=== PATIENT | male | born 1995 ===

== ENCOUNTER 2018-01-13 07:50 | Emergency (ER) | payer OTHER ==
[2018-01-13 08:04] VITALS: BP 117/66; PULSE 62; RESP 18; TEMP 98.2; O2SAT 98
[2018-01-13] MEDS ORDERED: Amoxicillin-Clav 875-125 mg Tab PO STA (08:49)
--- NOTE | 2018-01-13 08:51 | C.PDOC ---
History Of Present Illness 22 y/o male w/o significnat PMHx presents to ED for evaluation of gradually onset of nasal congestion, runny nose, sore throat, swallowing discomfort since earlier today. Otherwise, Patient denies fever, chills, headache, dizziness, vertigo, drooling, dyspnea, chest pain, sob, wheezing, abd. pain, V/D, back pain , or any other complaints at this time. Time Seen by Provider: 01/13/18 08:26 Chief Complaint (Nursing): ENT Problem History Per: Patient History/Exam Limitations: None Onset/Duration Of Symptoms: Hrs Current Symptoms Are (Timing): Still Present Past Medical History Reviewed: Historical Data, Nursing Documentation, Vital Signs Vital Signs: Last Vital Signs Temp 98.2 F 01/13/18 08:03 Pulse 62 01/13/18 08:03 Resp 18 01/13/18 08:03 BP 117/66 01/13/18 08:03 Pulse Ox 98 01/13/18 08:58 - Medical History PMH: No Chronic Diseases Surgical History: No Surg Hx Family History: States: No Known Family Hx - Social History Hx Alcohol Use: No Hx Substance Use: No - Immunization History Hx Tetanus Toxoid Vaccination: No Hx Influenza Vaccination: Yes Hx Pneumococcal Vaccination: No Review Of Systems Constitutional: Negative for: Fever, Chills ENT: Positive for: Nose Congestion, Throat Pain, Throat Swelling. Negative for : Ear Pain Cardiovascular: Negative for: Chest Pain Respiratory: Negative for: Shortness of Breath Skin: Negative for: Rash Physical Exam - Physical Exam Appears: Non-toxic, No Acute Distress Skin: Warm, Dry, No Rash Head: Normacephalic Eye(s): bilateral: PERRL Ear(s): Bilateral: Normal Nose: No Flaring, Discharge (B/L nasal congestion with scant clear rhinorrhea) Oral Mucosa: Moist, No Drooling Tongue: Normal Appearing Lips: Normal Appearing Throat: Erythema, Exudate (scattered), No Drooling, Other (Edema bilaterally) Neck: Trachea Midline, Supple, Other ((-) meningeal sign) Cardiovascular: Rhythm Regular, No Murmur, No JVD Respiratory: No Decreased Breath Sounds, No Accessory Muscle Use, No Rales, No Rhonchi, No Wheezing Gastrointestinal/Abdominal: Soft, No Tenderness, No Distention, No Guarding, No Rebound Back: No CVA Tenderness Extremity: Normal ROM, No Pedal Edema, No Deformity Neurological/Psych: Oriented x3, Normal Speech, Normal Cognition ED Course And Treatment O2 Sat by Pulse Oximetry: 98 (RA) Pulse Ox Interpretation: Normal Progress Note: On re-evaluation, pt is afebrile, hemodynamiclay stable. Non- toxic, tolerate Po well in ED. PulsEOx 98% RA Neck; Supple, (-) meningeal sign. ENT: (+) acute pharyngitis. Lungs: CTA B/L, BS equal B/L. Abd: benign, (-) guarding, (-) rebound. neurologicaly intact. Pt advised. ref. to F/u with PMD in 2-3 days for re-eavl. return to Ed if any worsening or new changes. Disposition Counseled Patient/Family Regarding: Diagnosis, Need For Followup, Rx Given - Disposition Referrals: Catalina Kelley DO [[facility]] - Disposition: HOME/ ROUTINE Disposition Time: 08:49 Condition: STABLE Additional Instructions: Encourage fluids take medication as prescribed Follow up with PMD in 2-3 days for re-evaluation. return to ED if any worsening or new changes. 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 - Scribe Statement The provider has reviewed the documentation as recorded by the Gladisibyoni Tellez All medical record entries made by the Wang were at my direction and personally dictated by me. I have reviewed the chart and agree that the record accurately reflects my personal performance of the history, physical exam, medical decision making, and the department course for this patient. I have also personally directed, reviewed, and agree with the discharge instructions and disposition.
[2018-01-13] MEDS ORDERED: Amoxicillin-Clav 875-125 mg Tab PO ONE (08:55)
== END 2018-01-13 09:00 | disposition home or self-care (01) ==
LOC: C.ER 07:50
DX: J02.9 Acute pharyngitis, unspecified (principal)